=== PATIENT | male | born 1960 | race Hispanic/Latino ===

== ENCOUNTER 2016-09-21 21:51 | Inpatient (IN) | payer MEDICARE, MEDICAID ==
[2016-09-21 22:41] LABS: VENOUS BLOOD GAS BASE EXCESS 0.4 mmol/L (0.0-2.0); VENOUS BLOOD GAS PCO2 31 mmHg (40-60); VENOUS BLOOD PH 7.48 (7.32-7.43)
[2016-09-21 22:44] LABS: BASO # 0.1 K/uL (0.0-0.2); BASO % 0.4 % (0.0-2.0); EOS # 0.1 K/uL (0.0-0.7); EOS % 0.3 % (0.0-4.0); HEMATOCRIT 38.8 % (35.0-51.0); LYMPH % 11.1 % (20.0-40.0); MEAN CELL VOLUME 86.1 fL (80.0-94.0); MEAN CORPUSCULAR HEMOGLOBIN 29.2 pg (27.0-31.0); MEAN CORPUSCULAR HGB CONC 33.9 g/dL (33.0-37.0); MEAN PLATELET VOLUME 9.1 fL (7.2-11.7); MONO # 1.2 K/uL (0.0-0.8); MONO % 6.9 % (0.0-10.0); RED CELL DISTRIBUTION WIDTH 14.4 % (11.5-14.5); WHITE BLOOD COUNT 17.7 K/uL (4.8-10.8)
[2016-09-21 22:51] LABS: CHLORIDE 96 mmol/L (98-107); INR 1.2; POTASSIUM 3.6 mmol/L (3.6-5.2); SODIUM 132 mmol/L (132-148)
[2016-09-21 22:53] LABS: GFR AFRICAN-AMERICAN > 60
[2016-09-21 22:54] LABS: ALB/GLOB RATIO 0.9 (1.0-2.1); ALKALINE PHOSPHATASE 124 U/L (38-126); ALT/SGPT 76 U/L (21-72); AST/SGOT 89 U/L (17-59); BILIRUBIN,TOTAL 0.8 mg/dL (0.2-1.3); BLOOD UREA NITROGEN 24 mg/dL (9-20); CALCIUM 8.2 mg/dl (8.6-10.4); CARBON DIOXIDE 21 mmol/L (22-30); GLUCOSE,RANDOM 117 mg/dL (75-110); TOTAL PROTEIN 7.5 g/dL (6.3-8.3)
--- NOTE | 2016-09-21 23:42 | C.PDOC ---
History Of Present Illness Patient with Hx of Seizures presents to ED with complaints of multiple episodes of seizures, fever and chills since yesterday. Patient also states he woke up this morning unable to move his left side of body. Patient reports he had some movement to his left arm and leg last night before going to sleep. Patient denies n/v/d or any other complaints at this time. Time Seen by Provider: 09/21/16 23:31 Chief Complaint (Nursing): Fever History Per: Patient History/Exam Limitations: no limitations Onset/Duration Of Symptoms: Days Current Symptoms Are (Timing): Still Present Sick Contacts (Context): None Associated Symptoms: Fever, Chills. denies: Nausea, Vomiting, Diarrhea Severity: Mild Pain Scale Rating Of: 2 Recent travel outside of the [place]: No Additional History Per: Patient Past Medical History Reviewed: Historical Data, Nursing Documentation, Vital Signs Vital Signs: Last Vital Signs Temp 99.4 F 09/22/16 00:34 Pulse 116 H 09/22/16 00:47 Resp 18 09/22/16 00:47 BP 96/66 L 09/22/16 00:47 Pulse Ox 97 09/22/16 00:47 - Medical History PMH: HTN, Hypercholesterolemia, Kidney Stones (9MM LEFT KIDNEY), Post Traumatic Stress Disorder, Seizures Surgical History: Appendectomy, Cholecystectomy - [facility] Procedures AMBULATORY CARDIAC MONITORING (04/01/02) DX ULTRASOUND-HEART (04/01/02) MAGNETIC RESONANCE IMAGING OF BRAIN AND BRAIN STEM (04/01/02) TREADMILL STRESS TEST (04/01/02) Family History: States: No Known Family Hx - Social History Hx Alcohol Use: No Hx Substance Use: No - Immunization History Hx Tetanus Toxoid Vaccination: No Hx Influenza Vaccination: No Hx Pneumococcal Vaccination: No Review Of Systems Constitutional: Positive for: Fever, Chills Gastrointestinal: Negative for: Nausea, Vomiting, Diarrhea Skin: Negative for: Rash Neurological: Positive for: Seizures Physical Exam - Physical Exam Appears: Non-toxic, No Acute Distress Skin: Warm Head: Normacephalic Eye(s): bilateral: Normal Inspection Oral Mucosa: Moist Neck: Trachea Midline, Supple Chest: Symmetrical Cardiovascular: Rhythm Regular Respiratory: No Rales, No Rhonchi, No Wheezing Gastrointestinal/Abdominal: Bowel Sounds (Active), Soft, No Tenderness, No Guarding, No Rebound Back: No CVA Tenderness Extremity: No Tenderness Extremity: Left: Other (hemiplegia) Neurological/Psych: Oriented x3 (Awake and alert), Other (Left Hemiplegia) Gait: Unable To Assess ED Course And Treatment - Laboratory Results Result Diagrams: 09/21/16 22:40 09/21/16 22:40 ECG: Interpreted By Me, Viewed By Me O2 Sat by Pulse Oximetry: 93 (RA) Pulse Ox Interpretation: Abnormal - Radiology CXR: Interpreted by Me, Viewed By Me CXR Interpretation: Yes: Other (?? rll infiltrate). No: Fracture, Pnemothorax NIHSS Stroke Scale - Date/Time Evaluation Performed Date Performed: 09/21/16 When Was NIHSS Performed: Baseline - How Severe is the Stoke Level of Consciousness: 0=Alert LOC to Questions: 0=Both comments correct LOC to commands: 0=Obeys both correctly Best Gaze: 0=Normal Visual: 0=No visual loss Facial: 0=Normal Motor Arm - Left: 3=No effort against gravity (falls immediately) Motor Arm - Right: 0=No drift Motor Leg - Left: 3=No effort against gravity (falls immediately) Motor Leg - Right: 0=No drift Limb Ataxia: 0=Absent Sensory: 0=Normal Best Language: 0=No aphasia Dysarthia: 0=Normal articulation Extinction & Inattention (Neglect): 0=Normal, no object Score: 6 Severity Of Stroke: 5-15= Moderate Stroke Disposition Discussed With : Rosa Franco Comment: accepted the pt on his service and took over the care at 2:12 AM Doctor Will See Patient In The: Hospital Counseled Patient/Family Regarding: Studies Performed, Diagnosis - Disposition Disposition: HOSPITALIZED Disposition Time: 00:00 Condition: FAIR - POA Present On Arrival: Poor Glycemic Control - Clinical Impression Clinical Impression: Fever, UTI (urinary tract infection), CVA (cerebral vascular accident) - Scribe Statement The provider has reviewed the documentation as recorded by the Wongibcathie Shea All medical record entries made by the Scribe were at my direction and personally dictated by me. I have reviewed the chart and agree that the record accurately reflects my personal performance of the history, physical exam, medical decision making, and the department course for this patient. I have also personally directed, reviewed, and agree with the discharge instructions and disposition. Decision To Admit - Pt Status Changed To: Hospital Disposition Of: Inpatient - Admit Certification Admit to Inpatient:: After my assessment, the patient will require hospitalization for at least two midnights. This is because of the severity of symptoms shown, intensity of services needed, and/or the medical risk in this patient being treated as an outpatient. - InPatient: Physician Admission Certification:: After my assessment, the patient will require hospitalization for at least two midnights. This is because of the severity of symptoms shown, intensity of services needed, and/or the medical risk in this patient being treated as an outpatient. - . Bed Request Type: Regular Admitting Physician: Rosa Franco Patient Diagnosis: Fever, UTI (urinary tract infection), CVA (cerebral vascular accident)
--- NOTE | 2016-09-22 00:07 | CT ---
EXAM: CT Head Without Intravenous Contrast CLINICAL HISTORY: 56 years old, male; Pain; Headache; Additional info: HX of strokes, l ryann TECHNIQUE: Axial computed tomography images of the head/brain without intravenous contrast. This CT exam was performed using one or more of the following dose reduction techniques: automated exposure control, adjustment of the mA and/or kV according to patient size, and/or use of iterative reconstruction technique. COMPARISON: No relevant prior studies available. FINDINGS: Brain: Mild atrophy. No intracranial hemorrhage. No mass. No definite edema. Ventricles: No hydrocephalus. Bones/joints: No acute fracture. Soft tissues: Small linear radiopaque density posterior midline neck. Clinical correlation is needed. Vasculature: Mild atherosclerotic disease of intracranial arteries. Sinuses: No acute sinusitis. Mastoid air cells: No mastoid effusion. Orbits: Unremarkable as visualized. IMPRESSION: 1. No definite acute intracranial abnormality. Acute infarction may be CT occult within first 24 hours. If a focal deficit persists, consider followup CT or MRI for further evaluation. 2. Incidental/non-acute findings are described above.
[2016-09-22 01:31] LABS: RBC URINE 5 /hpf (0-3); URINE BACTERIA MOD (<OCC); URINE BILIRUBIN NEGATIVE (NEGATIVE); URINE COLOR Amber (YELLOW); URINE GLUCOSE (UA) NORMAL (Normal); URINE KETONE TRACE mg/dL (NEGATIVE); URINE LEUKOCYTE ESTERASE 3+ Leu/uL (Negative); URINE PROTEIN 2+ mg/dL (NEGATIVE); URINE UROBILINOGEN NORMAL mg/dL (0.2-1.0); WBC URINE 57 /hpf (0-5)
[2016-09-22] MEDS ORDERED: Moxifloxacin IV 400mg/250ml NS 400 MG/250 ML BAG IVPB ONE (01:42)
[2016-09-22 01:59] LABS: URINE BLOOD TRACE (NEGATIVE)
[2016-09-22] MEDS ORDERED: PHENOBARBITAL 60 MG PO SCH (07:15)
--- NOTE | 2016-09-22 08:34 | RAD ---
HISTORY: FEVER COMPARISON: None available. TECHNIQUE: Chest, one view. FINDINGS: Examination limited by habitus. LUNGS: No focal consolidation. Please note that chest x-ray has limited sensitivity for the detection of pulmonary masses. PLEURA: No significant pleural effusion identified. No definite pneumothorax . CARDIOVASCULAR: The cardiomediastinal silhouette appears within normal limits of size. OSSEOUS STRUCTURES: No acute osseous abnormality identified. VISUALIZED UPPER ABDOMEN: Unremarkable. OTHER FINDINGS: None. IMPRESSION: No focal consolidation, significant pleural effusion, or definite pneumothorax identified.
[2016-09-22] MEDS ORDERED: Belladonna-Phenobarbital ONE (08:47)
[2016-09-22] MEDS ORDERED: Mupirocin 2% Ointment (NASAL) TP SCH ×2 (10:00)
[2016-09-22] MEDS ORDERED: NYSTATIN TP SCH ×2 (10:00)
[2016-09-22] MEDS ORDERED: TRIAMCINOLONE TP SCH ×2 (10:00)
[2016-09-22] MEDS: Multiple Vitamins Tab PO SCH (10:05)
--- NOTE | 2016-09-22 14:20 | CP.PCM.PN ---
Subjective - Date & Time of Evaluation Date of Evaluation: 09/22/16 Time of Evaluation: 11:00 - Subjective Subjective: Medicine Note- Dr. Franco's service Patient is a 56 year old male with PMHx of multiple CVAs, htn, hx of clots, hx of seizures, that presented to the hospital yesterday evening. He says that on Sunday, he experienced a fever and what he suspected what a seizure following it. He says he doesnt remember if he had the seizure but he recalls feeling like he was about to have one, which then he woke up the next day. He continues to have fevers, measuring up to 105 degrees, as per patient, measured in his axillary region. He was urged to come to the hospital so he did. On , he realized that he was unable to move his left upper and lower extremities. Previously, he had residual weakness from his CVAs and was able to move his left arm and leg with some strength. Allergies: PCN Denies smoking, alcohol, drug hx Objective - Vital Signs/Intake and Output Vital Signs (last 24 hours): Temp Pulse Resp BP Pulse Ox 99.0 F 106 H 18 102/67 99 09/22/16 11:22 09/22/16 14:05 09/22/16 14:05 09/22/16 14:05 09/22/16 14:05 - Medications Medications: Current Medications Calcium Carbonate (Oscal) 500 mg PO BID [facility] Last Admin: 09/22/16 10:19 Dose: 500 mg Famotidine (Pepcid) 20 mg PO DAILY [facility] Last Admin: 09/22/16 10:55 Dose: 20 mg Gabapentin (Neurontin) 300 mg PO BID [facility] Last Admin: 09/22/16 10:20 Dose: 300 mg Ciprofloxacin (Cipro 400mg/200ml Dsw) 400 mg in 200 mls @ 133 mls/hr IVPB Q12H [facility] Levetiracetam (Keppra) 1,000 mg PO BID [facility] Last Admin: 09/22/16 10:07 Dose: 1,000 mg Lisinopril (Zestril) 5 mg PO DAILY [facility] Last Admin: 09/22/16 10:20 Dose: Not Given Multivitamins (Hexavitamin) 1 tab PO DAILY [facility] Last Admin: 08/04/17 10:05 Dose: 1 tab Mupirocin (Bactroban 2% Nasal) 0.25 gm TP BID [facility] Last Admin: 09/22/16 10:20 Dose: 0.25 gm Nystatin/Triamcinolone Acetonide (Mycolog Ii) 1 ea TP BID [facility] Last Admin: 09/22/16 10:50 Dose: 1 ea Phenobarbital (Phenobarbital Tab) 64.8 mg PO Q8 [facility] Rosuvastatin Calcium (Crestor) 20 mg PO HS [facility] Sitagliptin Phosphate (Januvia) 100 mg PO DAILY [facility] Last Admin: 09/22/16 10:07 Dose: 100 mg - Labs Labs: PT 13.4 SECONDS (9.7-12.2) H 09/21/16 22:40 INR 1.2 09/21/16 22:40 APTT 29 SECONDS (21-34) 09/21/16 22:40 - Constitutional Appears: Non-toxic, No Acute Distress, Chronically Ill - Head Exam Head Exam: ATRAUMATIC, NORMAL INSPECTION, NORMOCEPHALIC - Eye Exam Pupil Exam: NORMAL ACCOMODATION, PERRL - ENT Exam ENT Exam: Mucous Membranes Moist - Neck Exam Neck Exam: Normal Inspection - Respiratory Exam Respiratory Exam: Clear to Ausculation Bilateral, Rales, NORMAL BREATHING PATTERN. absent: Prolonged Expiratory Phase, Rhonchi, Wheezes - Cardiovascular Exam Cardiovascular Exam: REGULAR RHYTHM, +S1, +S2 - GI/Abdominal Exam GI & Abdominal Exam: Soft, Normal Bowel Sounds. absent: Tenderness, Diminished Bowel Sounds, Hernia, Hyperactive Bowel Sounds, Hypoactive Bowel Sounds - Neurological Exam Neurological Exam: Alert, Awake, Oriented x3 Neuro motor strength exam: Left Upper Extremity: 0 (no sensation), Right Upper Extremity: 5, Left Lower Extremity: 0 (no sensation), Right Lower Extremity: 5 - Psychiatric Exam Psychiatric exam: Normal Affect, Normal Mood - Skin Skin Exam: Dry, Intact, Normal Color, Warm Assessment and Plan (1) Sepsis Assessment & Plan: HR > 100, WBC > 12 Consult- ID- Dr. Alejandro UA- Nitrate positive, LE +3, WBC 57 mod bacteria f/u urine culture f/u blood culture F/u lactate Started on Cipro 400mg IVPB Q12h Status: Acute (2) UTI (urinary tract infection) Assessment & Plan: UA- Nitrate positive, LE +3, WBC 57 mod bacteria WBC-17.7 f/u urine culture f/u blood culture Started on Cipro 400mg IVPB Q12h Status: Acute (3) Hemiparesis affecting left side as late effect of stroke Assessment & Plan: Consult neuro Head CT- No definite acute infarction (Please see full report) Continue Crestor 20mg PO HS f/u MRI Brain w/o contrast Status: Acute (4) Seizures Assessment & Plan: Consult neuro- Dr. Paradise Nichols Continue home meds: Keppra 1000mg PO BID Phenobarbital 32.4mg PO Q8h Status: Acute (5) Hypertension Assessment & Plan: Lisinopril 5mg PO Daily Status: Acute (6) Diabetes Assessment & Plan: Continue home med: Levemir 15U SC QHS Novolog 15U SC AC RISS Accucheck Status: Acute (7) Hyperlipidemia Assessment & Plan: Crestor 20mg PO HS Status: Acute (8) History of DVT (deep vein thrombosis) Assessment & Plan: Patient reports he was previously on eliquis, but he was stopped on it about one month ago due to complaints of hematuria. Status: Acute (9) Prophylactic measure Assessment & Plan: Heparin 5000U SC Q8h Protonix 40mg PO Daily Status: Acute
[2016-09-22] MEDS ORDERED: Ciprofloxacin 400mg/200ml D5W 400 MG/200 ML BAG IVPB ONE (15:29)
[2016-09-22] MEDS: Ciprofloxacin 400mg/200ml D5W 400 MG/200 ML BAG IVPB SCH (15:37)
[2016-09-22 16:19] LABS: VENOUS BLOOD GAS BASE EXCESS -1.2 mmol/L (0.0-2.0); VENOUS BLOOD GAS PCO2 39 mmHg (40-60); VENOUS BLOOD PH 7.39 (7.32-7.43)
[2016-09-22] MEDS: (Novolog) Insulin Aspart, Recombinant 100 u/ml 10 ml vial SC SCH ×3 (17:32→21:23)
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
[2016-09-22] MEDS ORDERED: Gentamicin 160 MG in Sodium Chloride 0.9% 100 ML IVPB ONE ×2 (18:47→22:00)
--- NOTE | 2016-09-22 19:08 | CARD ---
APPROVED REPORT EKG Measurement Heart [id number] <Conclusion> Sinus tachycardia Otherwise normal ECG
[2016-09-22] MEDS: Insulin Detemir 100 units/ml Vial (Levemir) SC SCH (21:23)
[2016-09-23] MEDS: Ciprofloxacin 400mg/200ml D5W 400 MG/200 ML BAG IVPB SCH ×2 (05:40→15:45)
[2016-09-23 06:31] LABS: BASO % 0.5 % (0.0-2.0); EOS # 0.1 K/uL (0.0-0.7); EOS % 0.9 % (0.0-4.0); HEMATOCRIT 36.4 % (35.0-51.0); LYMPH # 1.7 K/uL (1.0-4.3); LYMPH % 17.5 % (20.0-40.0); MEAN CELL VOLUME 85.9 fL (80.0-94.0); MEAN CORPUSCULAR HEMOGLOBIN 28.9 pg (27.0-31.0); MEAN CORPUSCULAR HGB CONC 33.7 g/dL (33.0-37.0); MEAN PLATELET VOLUME 9.4 fL (7.2-11.7); MONO # 0.9 K/uL (0.0-0.8); MONO % 9.3 % (0.0-10.0); RED CELL DISTRIBUTION WIDTH 14.7 % (11.5-14.5); WHITE BLOOD COUNT 9.5 K/uL (4.8-10.8)
[2016-09-23 06:48] LABS: CHLORIDE 98 mmol/L (98-107); SODIUM 136 mmol/L (132-148)
[2016-09-23 06:49] LABS: POTASSIUM 3.6 mmol/L (3.6-5.2)
[2016-09-23 06:51] LABS: ALB/GLOB RATIO 0.8 (1.0-2.1); AST/SGOT 128 U/L (17-59); BILIRUBIN,TOTAL 0.5 mg/dL (0.2-1.3); CARBON DIOXIDE 25 mmol/L (22-30); GFR AFRICAN-AMERICAN > 60; TOTAL PROTEIN 6.9 g/dL (6.3-8.3)
[2016-09-23 06:52] LABS: ALKALINE PHOSPHATASE 122 U/L (38-126); ALT/SGPT 118 U/L (21-72); BLOOD UREA NITROGEN 22 mg/dL (9-20); CALCIUM 8.4 mg/dl (8.6-10.4); GLUCOSE,RANDOM 130 mg/dL (75-110)
[2016-09-23] MEDS: (Novolog) Insulin Aspart, Recombinant 100 u/ml 10 ml vial SC SCH ×6 (07:41→17:00)
[2016-09-23] MEDS: Multiple Vitamins Tab PO SCH (09:03)
--- NOTE | 2016-09-23 11:52 | MRI ---
PROCEDURE: MRI BRAIN WITHOUT CONTRAST HISTORY: sensation and motor loss on left side, hx of 3 cva COMPARISON: None. TECHNIQUE: Multiplanar, multisequence MR images of the brain were obtained without intravenous contrast enhancement. FINDINGS: HEMORRHAGE: None DWI: No evidence of an acute or early subacute infarction. BRAIN PARENCHYMA: No mass effect or edema. No atrophy or chronic microvascular ischemic changes. VENTRICLES: Unremarkable. No hydrocephalus. CRANIUM: Unremarkable. ORBITS: Grossly unremarkable. PARANASAL SINUSES/MASTOIDS: Clear VASCULAR SYSTEM: Skull base flow voids intact. OTHER FINDINGS: None. IMPRESSION: Unremarkable non contrast enhanced MRI of the brain.
[2016-09-23] MEDS ORDERED: Vancomycin 1 gm/NS 200 ml 1 GM/200 ML BAG IVPB ONE (13:00)
--- NOTE | 2016-09-23 15:28 | CON ---
DATE: 09/23/2016 CHIEF COMPLAINT: Evaluate for CVA. HISTORY OF PRESENT ILLNESS: A 56-year-old female with past medical history of multiple TIAs with residual left-sided weakness, has history of seizures followed with Dr. Nihcols, who is on gabapentin, as well as Keppra 1000 mg p.o. b.i.d. He is also on oxycodone for chronic pain, came for questionable seizure and worsening left-sided weakness. Currently, his MRI of the brain is unremarkable. His blood pressures systolic and diastolic are on the lower side and he has evidence of urinary tract infection for which he is on antibiotics per ID. Currently, he has some mild residual left-sided weakness and prior CVA, but otherwise no acute events. No further seizures. ALLERGIES: ALLERGIC TO PENICILLIN. MEDICATIONS: Reviewed by nurse practitioner, see med reconciliation sheet. FAMILY HISTORY: Noncontributory. SOCIAL HISTORY: Denies any illicit drug use, smoking, or EtOH abuse. REVIEW OF SYSTEMS: A 14-point review of system is negative except as in the HPI. PHYSICAL EXAMINATION: GENERAL: The patient is sitting up in bed, in no acute distress. VITAL SIGNS: Temperature 98.5, pulse rate 104, blood pressure 102/67, respiratory rate 18, and oxygen saturation 99% on room air. HEENT: Head is atraumatic and normocephalic. PERRLA. Extraocular muscles intact. NECK: Supple. No JVD. No adenopathy noted. HEART: S1 and S2, normal rate and rhythm. No murmurs, rubs, or gallops. LUNGS: Clear to auscultation. No adventitious sounds. ABDOMEN: Soft, nontender, nondistended. Bowel sounds present. EXTREMITIES: No clubbing, no cyanosis. Peripheral pulses 2+ felt bilaterally. NEUROLOGIC: The patient is alert and oriented to person and place, month, and year. Speech is fluent without any errors. Cranial nerves II through XII intact. Motor exam: Moves all extremities equally. No pronator drift seen. Has mild residual left-sided giveaway weakness compared to the right, which is old. Sensory exam: Light touch, pinprick, proprioception and vibration are intact. DTRs are 2+ throughout. LABORATORY DATA: MRI of the brain is unremarkable. Sodium is 136, potassium 3.2, chloride 98, carbon dioxide 25, BUN 22, creatinine 0.7, and random glucose 130. ASSESSMENT AND PLAN: This is a 56-year-old man with history of cerebrovascular accident with residual left-sided weakness, history of seizures on Keppra 1000 mg p.o. b.i.d. who presented that he had fever and suspected seizure and he does not remember, if he had a seizure or not and felt like that he had one when he workup next day, generalized weakness, and fever. Found to have urinary tract infection. His MRI of the brain is unremarkable for any acute intracranial abnormalities. He has systolic low blood pressure. At this time, he was consulted worsening left-sided weakness probably from cerebrovascular accident. IMPRESSION: Urinary tract infection, possibly causing the questionable breakthrough seizures superimposed underlying residual left-sided weakness from prior cerebrovascular accident. His MRI of the brain unremarkable and acute stroke. At this time, we recommend: 1. Continue with his Keppra 1000 mg p.o. b.i.d. for seizure prevention. 2. Monitor his sugars and keep his blood sugars around 141-180. 3. Continue with phenobarbital 32.4 mg p.o. q.8 hours for his underlying seizures as well. 4. Keep his systolic blood pressures between 120-130. 5. Continue to manage his urinary tract infection with current antibiotics as per ID. 6. Gabapentin 300 mg p.o. b.i.d. for neuropathic pain relief and avoid opioids to lower the seizure threshold. Continue current present medical management and he is cleared from my standpoint and need to follow up with his neurologist Dr. Nichols. Barrie Velasquez MD
[2016-09-23] MEDS: Insulin Detemir 100 units/ml Vial (Levemir) SC SCH (21:35)
[2016-09-24] MEDS: Oxycodone/Acetaminophen 5/325 mg Tab PO PRN ×3 (00:40→21:56)
[2016-09-24] MEDS: Ciprofloxacin 400mg/200ml D5W 400 MG/200 ML BAG IVPB SCH ×2 (03:22→14:00)
[2016-09-24 07:39] LABS: BASO # 0.1 K/uL (0.0-0.2); BASO % 0.7 % (0.0-2.0); EOS # 0.2 K/uL (0.0-0.7); EOS % 1.9 % (0.0-4.0); HEMATOCRIT 36.4 % (35.0-51.0); LYMPH # 1.5 K/uL (1.0-4.3); LYMPH % 17.3 % (20.0-40.0); MEAN CELL VOLUME 85.9 fL (80.0-94.0); MEAN CORPUSCULAR HEMOGLOBIN 29.1 pg (27.0-31.0); MEAN CORPUSCULAR HGB CONC 33.9 g/dL (33.0-37.0); MEAN PLATELET VOLUME 9.6 fL (7.2-11.7); MONO # 0.8 K/uL (0.0-0.8); MONO % 8.8 % (0.0-10.0); RED CELL DISTRIBUTION WIDTH 14.3 % (11.5-14.5); WHITE BLOOD COUNT 8.9 K/uL (4.8-10.8)
[2016-09-24 07:44] LABS: CHLORIDE 98 mmol/L (98-107)
[2016-09-24 07:45] LABS: POTASSIUM 3.8 mmol/L (3.6-5.2); SODIUM 137 mmol/L (132-148)
[2016-09-24 07:47] LABS: BILIRUBIN,TOTAL 0.5 mg/dL (0.2-1.3); CARBON DIOXIDE 27 mmol/L (22-30); CHOLESTEROL 149 mg/dL (0-199); GFR AFRICAN-AMERICAN > 60
[2016-09-24 07:48] LABS: ALB/GLOB RATIO 0.8 (1.0-2.1); ALKALINE PHOSPHATASE 138 U/L (38-126); ALT/SGPT 123 U/L (21-72); AST/SGOT 103 U/L (17-59); BLOOD UREA NITROGEN 17 mg/dL (9-20); CALCIUM 8.7 mg/dl (8.6-10.4); GLUCOSE,RANDOM 111 mg/dL (75-110); TOTAL PROTEIN 7.1 g/dL (6.3-8.3)
[2016-09-24] MEDS: (Novolog) Insulin Aspart, Recombinant 100 u/ml 10 ml vial SC SCH ×7 (08:15→21:31)
[2016-09-24] MEDS: Multiple Vitamins Tab PO SCH (09:19)
--- NOTE | 2016-09-24 14:59 | CP.PCM.PN ---
Subjective - Date & Time of Evaluation Date of Evaluation: 09/24/16 Time of Evaluation: 07:00 - Subjective Subjective: afebrile on iv antibiotics grew esbl + ecoli in urine has stones by hx with recurrent uti on iv cipro allergic pcn prognosis guarded cont iv rx Objective - Vital Signs/Intake and Output Vital Signs (last 24 hours): Temp Pulse Resp BP Pulse Ox 97.3 F L 106 H 20 115/78 99 09/24/16 08:22 09/24/16 12:16 09/24/16 08:22 09/24/16 08:22 09/24/16 12:16 Intake and Output: 09/24/16 09/24/16 06:59 18:59 Intake Total 600 600 Balance 600 600 - Medications Medications: Current Medications Famotidine (Pepcid) 20 mg PO DAILY [facility] Last Admin: 09/24/16 09:20 Dose: 20 mg Gabapentin (Neurontin) 300 mg PO BID [facility] Last Admin: 09/24/16 09:19 Dose: 300 mg Heparin Sodium (Porcine) (Heparin) 5,000 units SC Q8 [facility] Last Admin: 09/24/16 13:03 Dose: 5,000 units Ciprofloxacin (Cipro 400mg/200ml Dsw) 400 mg in 200 mls @ 133 mls/hr IVPB Q12H [facility] Last Admin: 09/24/16 14:00 Dose: 133 mls/hr Insulin Aspart (Novolog) 15 unit SC AC [facility] Last Admin: 09/24/16 12:18 Dose: 15 unit Insulin Aspart (Novolog) 0 unit SC ACHS [facility] PRN Reason: Protocol Last Admin: 09/24/16 12:19 Dose: 2 unit Insulin Detemir (Levemir) 15 unit SC HS [facility] Last Admin: 09/23/16 21:35 Dose: 15 unit Levetiracetam (Keppra) 1,000 mg PO BID [facility] Last Admin: 09/24/16 09:19 Dose: 1,000 mg Lisinopril (Zestril) 5 mg PO DAILY [facility] Last Admin: 09/24/16 09:21 Dose: Not Given Multivitamins (Hexavitamin) 1 tab PO DAILY [facility] Last Admin: 09/24/16 09:19 Dose: 1 tab Oxycodone/Acetaminophen (Percocet 5/325 Mg Tab) 1 tab PO Q6H PRN PRN Reason: Pain, severe (8-10) Stop: 09/25/16 14:32 Last Admin: 09/24/16 12:20 Dose: 1 tab Phenobarbital (Phenobarbital Tab) 32.4 mg PO Q8 [facility] Last Admin: 09/24/16 13:03 Dose: 32.4 mg Pneumococcal Polyvalent Vaccine (Pneumovax 23 Vaccine) 0.5 ml IM .ONCE ONE Stop: 09/25/16 10:01 Rosuvastatin Calcium (Crestor) 20 mg PO HS [facility] Last Admin: 09/23/16 21:35 Dose: 20 mg Sitagliptin Phosphate (Januvia) 100 mg PO DAILY [facility] Last Admin: 09/24/16 09:20 Dose: 100 mg - Labs Labs: 09/24/16 07:17 09/24/16 07:17 PT 13.4 SECONDS (9.7-12.2) H 09/21/16 22:40 INR 1.2 09/21/16 22:40 APTT 29 SECONDS (21-34) 09/21/16 22:40 - Constitutional Appears: Non-toxic, No Acute Distress, Chronically Ill - Head Exam Head Exam: NORMOCEPHALIC - Eye Exam Eye Exam: PERRL. absent: Scleral icterus - ENT Exam ENT Exam: Mucous Membranes Dry - Neck Exam Neck Exam: absent: Thyromegaly - Respiratory Exam Respiratory Exam: Decreased Breath Sounds, Clear to Ausculation Bilateral - Cardiovascular Exam Cardiovascular Exam: REGULAR RHYTHM - GI/Abdominal Exam GI & Abdominal Exam: Distended, Soft - Rectal Exam Rectal Exam: Deferred - Exam Exam: NORMAL INSPECTION - Extremities Exam Extremities Exam: absent: Pedal Edema - Back Exam Back Exam: absent: CVA tenderness (L), CVA tenderness (R) - Neurological Exam Neurological Exam: Alert, Awake, Oriented x3 Assessment and Plan (1) CVA, old, hemiparesis Status: Acute (2) Diabetes Status: Acute (3) Fever Status: Acute (4) Hemiparesis affecting left side as late effect of stroke Status: Acute (5) History of DVT (deep vein thrombosis) Status: Acute (6) Hyperlipidemia Status: Acute (7) Hypertension Status: Acute (8) Sepsis Status: Acute (9) UTI (urinary tract infection) Status: Acute
[2016-09-24 16:48] LABS: RBC URINE < 1 /hpf (0-3); URINE BILIRUBIN NEGATIVE (NEGATIVE); URINE BLOOD 1+ (NEGATIVE); URINE COLOR Straw (YELLOW); URINE GLUCOSE (UA) NORMAL (Normal); URINE KETONE NEGATIVE (NEGATIVE); URINE LEUKOCYTE ESTERASE TRACE Leu/uL (Negative); URINE PROTEIN NEGATIVE (NEGATIVE); URINE UROBILINOGEN NORMAL mg/dL (0.2-1.0); WBC URINE 6 /hpf (0-5)
--- NOTE | 2016-09-24 21:44 | PN ---
DATE: 09/24/2016 The patient is given IV antibiotics, supportive care. Rosa Franco MD
[2016-09-24] MEDS: Insulin Detemir 100 units/ml Vial (Levemir) SC SCH (21:52)
[2016-09-25] MEDS: Ciprofloxacin 400mg/200ml D5W 400 MG/200 ML BAG IVPB SCH ×2 (04:09→14:51)
--- NOTE | 2016-09-25 05:15 | HP ---
HISTORY OF PRESENT ILLNESS: A 56-year-old male admitted to the hospital with weakness, fatigue, tiredness and shortness of breath. The patient came to the hospital, advised admission. The patient was started on IV antibiotics. PHYSICAL EXAMINATION GENERAL: The patient is awake, alert and oriented. VITAL SIGNS: Temperature 98, pulse 90. HEENT: Within normal limits. NECK: Supple. CHEST: Symmetrical. HEART: Regular. ABDOMEN: Soft. EXTREMITIES: No edema. IMPRESSION: The patient suffers from urinary tract infection and sepsis. supportive care. . Rosa Franco MD
[2016-09-25 07:42] LABS: BASO # 0.1 K/uL (0.0-0.2); BASO % 0.8 % (0.0-2.0); EOS # 0.2 K/uL (0.0-0.7); EOS % 2.2 % (0.0-4.0); HEMATOCRIT 38.6 % (35.0-51.0); LYMPH # 1.4 K/uL (1.0-4.3); LYMPH % 15.5 % (20.0-40.0); MEAN CELL VOLUME 86.5 fL (80.0-94.0); MEAN CORPUSCULAR HGB CONC 33.5 g/dL (33.0-37.0); MEAN PLATELET VOLUME 10.2 fL (7.2-11.7); MONO # 0.8 K/uL (0.0-0.8); MONO % 8.3 % (0.0-10.0); NRBC % 0.1 % (0.0-2.0); RED CELL DISTRIBUTION WIDTH 14.2 % (11.5-14.5); WHITE BLOOD COUNT 9.4 K/uL (4.8-10.8)
[2016-09-25] MEDS: (Novolog) Insulin Aspart, Recombinant 100 u/ml 10 ml vial SC SCH ×7 (08:00→21:33)
[2016-09-25 08:04] LABS: CHLORIDE 98 mmol/L (98-107); SODIUM 135 mmol/L (132-148)
[2016-09-25 08:05] LABS: POTASSIUM 4.5 mmol/L (3.6-5.2)
[2016-09-25 08:07] LABS: ALKALINE PHOSPHATASE 140 U/L (38-126); ALT/SGPT 102 U/L (21-72); AST/SGOT 66 U/L (17-59); BILIRUBIN,TOTAL 0.4 mg/dL (0.2-1.3); BLOOD UREA NITROGEN 20 mg/dL (9-20); CALCIUM 8.9 mg/dl (8.6-10.4); CARBON DIOXIDE 25 mmol/L (22-30); GFR AFRICAN-AMERICAN > 60; GLUCOSE,RANDOM 138 mg/dL (75-110); TOTAL PROTEIN 7.3 g/dL (6.3-8.3)
[2016-09-25 08:15] LABS: ALB/GLOB RATIO 0.9 (1.0-2.1)
[2016-09-25] MEDS: Multiple Vitamins Tab PO SCH (09:51)
[2016-09-25] MEDS ORDERED: Pneumococcal 23-Valent Vaccine IM ONE (10:00)
--- NOTE | 2016-09-25 14:40 | CP.PCM.PN ---
Subjective - Date & Time of Evaluation Date of Evaluation: 09/25/16 Time of Evaluation: 07:45 - Subjective Subjective: Medicine Note- Dr. Franco's service Patient seen and examined at bedside this morning. He reports that he does not have abdominal pain, back pain or urinary complaints today. He states that he does follow up with urology outpatient for a large renal stone.He denied fever/ chills, headache, changes in vision, CP, urinary complaints, weakness, numbness in the extremities. Objective - Vital Signs/Intake and Output Vital Signs (last 24 hours): Temp Pulse Resp BP Pulse Ox 98 F 104 H 18 99/65 L 98 09/25/16 07:20 09/25/16 07:20 09/25/16 07:20 09/25/16 07:20 09/25/16 07:20 Intake and Output: 09/25/16 09/25/16 06:59 18:59 Output Total 500 Balance -500 - Medications Medications: Current Medications Famotidine (Pepcid) 20 mg PO DAILY [facility] Last Admin: 09/25/16 09:51 Dose: 20 mg Gabapentin (Neurontin) 300 mg PO BID [facility] Last Admin: 09/25/16 09:51 Dose: 300 mg Heparin Sodium (Porcine) (Heparin) 5,000 units SC Q8 [facility] Last Admin: 09/25/16 13:10 Dose: 5,000 units Ciprofloxacin (Cipro 400mg/200ml Dsw) 400 mg in 200 mls @ 133 mls/hr IVPB Q12H [facility] Last Admin: 09/25/16 04:09 Dose: 133 mls/hr Insulin Aspart (Novolog) 15 unit SC AC [facility] Last Admin: 09/25/16 12:15 Dose: 15 unit Insulin Aspart (Novolog) 0 unit SC ACHS [facility] PRN Reason: Protocol Last Admin: 09/25/16 12:20 Dose: Not Given Insulin Detemir (Levemir) 15 unit SC HS [facility] Last Admin: 09/24/16 21:52 Dose: 15 unit Levetiracetam (Keppra) 1,000 mg PO BID [facility] Last Admin: 09/25/16 09:51 Dose: 1,000 mg Lisinopril (Zestril) 5 mg PO DAILY [facility] Last Admin: 09/25/16 09:51 Dose: Not Given Multivitamins (Hexavitamin) 1 tab PO DAILY [facility] Last Admin: 09/25/16 09:51 Dose: 1 tab Phenobarbital (Phenobarbital Tab) 32.4 mg PO Q8 [facility] Last Admin: 09/25/16 13:10 Dose: 32.4 mg Rosuvastatin Calcium (Crestor) 20 mg PO HS [facility] Last Admin: 09/24/16 21:52 Dose: 20 mg Sitagliptin Phosphate (Januvia) 100 mg PO DAILY [facility] Last Admin: 09/25/16 09:51 Dose: 100 mg - Labs Labs: 09/25/16 07:20 09/25/16 07:20 PT 13.4 SECONDS (9.7-12.2) H 09/21/16 22:40 INR 1.2 09/21/16 22:40 APTT 29 SECONDS (21-34) 09/21/16 22:40 - Constitutional Appears: Non-toxic, No Acute Distress, Chronically Ill - Head Exam Head Exam: ATRAUMATIC, NORMAL INSPECTION - Eye Exam Eye Exam: Normal appearance, PERRL Pupil Exam: NORMAL ACCOMODATION - ENT Exam ENT Exam: Mucous Membranes Moist - Respiratory Exam Respiratory Exam: Decreased Breath Sounds, Wheezes. absent: Accessory Muscle Use, Respiratory Distress, NORMAL BREATHING PATTERN Additional comments: on NC - Cardiovascular Exam Cardiovascular Exam: REGULAR RHYTHM, +S1, +S2 - GI/Abdominal Exam GI & Abdominal Exam: Soft, Normal Bowel Sounds. absent: Distended, Firm, Guarding, Tenderness Additional comments: obese - Extremities Exam Extremities Exam: Normal Inspection, Pedal Edema - Neurological Exam Neurological Exam: Alert, Awake, Oriented x3 - Psychiatric Exam Psychiatric exam: Normal Affect, Normal Mood - Skin Skin Exam: Dry, Intact, Normal Color, Warm Assessment and Plan - Assessment and Plan (Free Text) Assessment: Assessment and Plan Sepsis Assessment & Plan: HR > 100, WBC > 12 Consult- ID- Dr. Alejandro UA- Nitrate positive, LE +3, WBC 57 mod bacteria f/u urine culture - gram negative peter prelim f/u blood culture - Klebsiella Pneumoniae Started on Cipro 400mg IVPB Q12h (b/c sensitive to Cipro) Status: Acute UTI (urinary tract infection) Assessment & Plan: UA- Nitrate positive, LE +3, WBC 57 mod bacteria WBC- 9.4 today (17.7 on admission) f/u urine culture - gram negative peter prelim f/u blood culture - Klebsiella Pneumoniae Started on Cipro 400mg IVPB Q12h (b/c sensitive to Cipro) Status: Acute Hemiparesis affecting left side as late effect of stroke Assessment & Plan: Consult neuro Head CT- No definite acute infarction (Please see full report) Continue Crestor 20mg PO HS MRI Brain w/o contrast -neagative Status: Acute Hx of Renal Calculi Assessment & Plan: Consult urology, Dr. Dudley - help appreciated PSA 0.693 Status: Acute Seizures Assessment & Plan: Consult neuro- Dr. Alexandra Velasquez consulted help appreciated Continue home meds: Keppra 1000mg PO BID Phenobarbital 32.4mg PO Q8h Gabapentin 300 mg PO BID for neuropathic pain avoid opioids as they can lower seizure threshold clear per neuro can follow up with his neurologist Dr. Nichols outpatient Status: Acute Seizures Assessment & Plan: Consult neuro- Dr. Alexandra Velasquez consulted help appreciated Continue home meds: Keppra 1000mg PO BID Phenobarbital 32.4mg PO Q8h Gabapentin 300 mg PO BID for neuropathic pain avoid opioids as they can lower seizure threshold clear per neuro can follow up with his neurologist Dr. Nichols outpatient Status: Acute Hypertension Assessment & Plan: Lisinopril 5mg PO Daily Status: Acute Diabetes Assessment & Plan: Continue home med: Januvia 100mg PO daily Levemir 15U SC QHS Novolog 15U SC AC RISS Accucheck Status: Acute Hyperlipidemia Assessment & Plan: Crestor 20mg PO HS Status: Acute History of DVT (deep vein thrombosis) Assessment & Plan: Patient reports he was previously on eliquis, but he was stopped on it about one month ago due to complaints of hematuria. Status: Acute Prophylactic measure Assessment & Plan: Heparin 5000U SC Q8h Protonix 40mg PO Daily MV daily CC heart healthy diet Status: Acute
[2016-09-25] MEDS: Insulin Detemir 100 units/ml Vial (Levemir) SC SCH (21:33)
[2016-09-25] MEDS ORDERED: Oxycodone/Acetaminophen 5/325 mg Tab PO STA (21:46)
[2016-09-26] MEDS: Ciprofloxacin 400mg/200ml D5W 400 MG/200 ML BAG IVPB SCH ×2 (03:59→14:38)
[2016-09-26] MEDS: (Novolog) Insulin Aspart, Recombinant 100 u/ml 10 ml vial SC SCH ×4 (07:07→12:17)
[2016-09-26 07:35] LABS: BASO # 0.1 K/uL (0.0-0.2); BASO % 0.6 % (0.0-2.0); EOS # 0.3 K/uL (0.0-0.7); EOS % 2.7 % (0.0-4.0); HEMATOCRIT 38.9 % (35.0-51.0); LYMPH # 1.7 K/uL (1.0-4.3); LYMPH % 16.7 % (20.0-40.0); MEAN CELL VOLUME 86.4 fL (80.0-94.0); MEAN CORPUSCULAR HEMOGLOBIN 28.7 pg (27.0-31.0); MEAN CORPUSCULAR HGB CONC 33.2 g/dL (33.0-37.0); MEAN PLATELET VOLUME 9.8 fL (7.2-11.7); MONO # 0.9 K/uL (0.0-0.8); MONO % 9.1 % (0.0-10.0); RED CELL DISTRIBUTION WIDTH 14.4 % (11.5-14.5); WHITE BLOOD COUNT 10.2 K/uL (4.8-10.8)
[2016-09-26 08:23] LABS: CHLORIDE 99 mmol/L (98-107)
[2016-09-26 08:24] LABS: POTASSIUM 4.4 mmol/L (3.6-5.2); SODIUM 135 mmol/L (132-148)
[2016-09-26 08:26] LABS: ALKALINE PHOSPHATASE 150 U/L (38-126); ALT/SGPT 89 U/L (21-72); AST/SGOT 55 U/L (17-59); BILIRUBIN,TOTAL 0.4 mg/dL (0.2-1.3); BLOOD UREA NITROGEN 19 mg/dL (9-20); CARBON DIOXIDE 26 mmol/L (22-30); GFR AFRICAN-AMERICAN > 60; GLUCOSE,RANDOM 139 mg/dL (75-110); TOTAL PROTEIN 7.4 g/dL (6.3-8.3)
[2016-09-26 08:27] LABS: ALB/GLOB RATIO 0.9 (1.0-2.1); CALCIUM 8.8 mg/dl (8.6-10.4); MAGNESIUM 1.9 mg/dL (1.6-2.3); PHOSPHOROUS 3.6 mg/dL (2.5-4.5)
[2016-09-26 08:46] VITALS: BP 120/72; PULSE 103; RESP 19; TEMP 98.1; O2SAT 98
[2016-09-26] MEDS: Multiple Vitamins Tab PO SCH (09:09)
--- NOTE | 2016-09-26 11:15 | CP.PCM.PN ---
Subjective - Date & Time of Evaluation Date of Evaluation: 09/26/16 Time of Evaluation: 07:00 - Subjective Subjective: klebs in blood and urine sens to cipro cont rx min 14-21 days gu eval recommended Objective - Vital Signs/Intake and Output Vital Signs (last 24 hours): Temp Pulse Resp BP Pulse Ox 98.1 F 103 H 19 120/72 98 09/26/16 07:20 09/26/16 07:20 09/26/16 07:20 09/26/16 07:20 09/26/16 07:20 Intake and Output: 09/26/16 09/26/16 06:59 18:59 Output Total 350 Balance -350 - Medications Medications: Current Medications Famotidine (Pepcid) 20 mg PO DAILY [facility] Last Admin: 09/26/16 09:09 Dose: 20 mg Gabapentin (Neurontin) 300 mg PO BID [facility] Last Admin: 09/26/16 09:09 Dose: 300 mg Heparin Sodium (Porcine) (Heparin) 5,000 units SC Q8 [facility] Last Admin: 09/26/16 06:19 Dose: 5,000 units Ciprofloxacin (Cipro 400mg/200ml Dsw) 400 mg in 200 mls @ 133 mls/hr IVPB Q12H [facility] Last Admin: 09/26/16 03:59 Dose: 133 mls/hr Insulin Aspart (Novolog) 15 unit SC AC [facility] Last Admin: 09/26/16 07:48 Dose: 15 unit Insulin Aspart (Novolog) 0 unit SC ACHS [facility] PRN Reason: Protocol Last Admin: 09/26/16 07:07 Dose: Not Given Insulin Detemir (Levemir) 15 unit SC HS [facility] Last Admin: 09/25/16 21:33 Dose: 15 unit Levetiracetam (Keppra) 1,000 mg PO BID [facility] Last Admin: 09/26/16 09:09 Dose: 1,000 mg Lisinopril (Zestril) 5 mg PO DAILY [facility] Last Admin: 09/26/16 09:10 Dose: Not Given Multivitamins (Hexavitamin) 1 tab PO DAILY [facility] Last Admin: 09/26/16 09:09 Dose: 1 tab Phenobarbital (Phenobarbital Tab) 32.4 mg PO Q8 [facility] Last Admin: 09/26/16 06:19 Dose: 32.4 mg Rosuvastatin Calcium (Crestor) 20 mg PO HS [facility] Last Admin: 09/25/16 21:31 Dose: 20 mg Sitagliptin Phosphate (Januvia) 100 mg PO DAILY [facility] Last Admin: 09/26/16 09:09 Dose: 100 mg - Labs Labs: 09/26/16 07:10 09/26/16 07:10 PT 13.4 SECONDS (9.7-12.2) H 09/21/16 22:40 INR 1.2 09/21/16 22:40 APTT 29 SECONDS (21-34) 09/21/16 22:40 - Constitutional Appears: Non-toxic - Head Exam Head Exam: NORMOCEPHALIC - Eye Exam Eye Exam: PERRL - ENT Exam ENT Exam: Mucous Membranes Dry - Neck Exam Neck Exam: absent: Lymphadenopathy - Respiratory Exam Respiratory Exam: Clear to Ausculation Bilateral - Cardiovascular Exam Cardiovascular Exam: REGULAR RHYTHM - GI/Abdominal Exam GI & Abdominal Exam: Distended, Soft - Rectal Exam Rectal Exam: Deferred Assessment and Plan (1) CVA, old, hemiparesis Status: Acute (2) Diabetes Status: Acute (3) Fever Status: Acute (4) Hemiparesis affecting left side as late effect of stroke Status: Acute (5) History of DVT (deep vein thrombosis) Status: Acute (6) Hyperlipidemia Status: Acute (7) Hypertension Status: Acute (8) Sepsis Status: Acute (9) UTI (urinary tract infection) Status: Acute
--- NOTE | 2016-09-26 12:12 | CP.PCM.PN ---
Subjective - Date & Time of Evaluation Date of Evaluation: 09/26/16 Time of Evaluation: 09:10 - Subjective Subjective: PGY-2 Resident Progress Note for Dr. Franco Patient seen and examined at bedside. No acute events overnight. Patient has no current complaints. Patient expresses strong interest in going home. Patient denies having headache, fever, chills, shortness of breath, chest pain, nausea, vomiting, urinary symptoms or diarrhea. Objective - Vital Signs/Intake and Output Vital Signs (last 24 hours): Temp Pulse Resp BP Pulse Ox 98.1 F 103 H 19 120/72 98 09/26/16 07:20 09/26/16 07:20 09/26/16 07:20 09/26/16 07:20 09/26/16 07:20 Intake and Output: 09/26/16 09/26/16 06:59 18:59 Output Total 350 Balance -350 - Medications Medications: Current Medications Famotidine (Pepcid) 20 mg PO DAILY [facility] Last Admin: 09/26/16 09:09 Dose: 20 mg Gabapentin (Neurontin) 300 mg PO BID [facility] Last Admin: 09/26/16 09:09 Dose: 300 mg Heparin Sodium (Porcine) (Heparin) 5,000 units SC Q8 [facility] Last Admin: 09/26/16 06:19 Dose: 5,000 units Ciprofloxacin (Cipro 400mg/200ml Dsw) 400 mg in 200 mls @ 133 mls/hr IVPB Q12H [facility] Last Admin: 09/26/16 03:59 Dose: 133 mls/hr Insulin Aspart (Novolog) 15 unit SC AC [facility] Last Admin: 09/26/16 07:48 Dose: 15 unit Insulin Aspart (Novolog) 0 unit SC ACHS [facility] PRN Reason: Protocol Last Admin: 09/26/16 07:07 Dose: Not Given Insulin Detemir (Levemir) 15 unit SC HS [facility] Last Admin: 09/25/16 21:33 Dose: 15 unit Levetiracetam (Keppra) 1,000 mg PO BID [facility] Last Admin: 09/26/16 09:09 Dose: 1,000 mg Lisinopril (Zestril) 5 mg PO DAILY [facility] Last Admin: 09/26/16 09:10 Dose: Not Given Multivitamins (Hexavitamin) 1 tab PO DAILY [facility] Last Admin: 09/26/16 09:09 Dose: 1 tab Phenobarbital (Phenobarbital Tab) 32.4 mg PO Q8 [facility] Last Admin: 09/26/16 06:19 Dose: 32.4 mg Rosuvastatin Calcium (Crestor) 20 mg PO HS [facility] Last Admin: 09/25/16 21:31 Dose: 20 mg Sitagliptin Phosphate (Januvia) 100 mg PO DAILY [facility] Last Admin: 09/26/16 09:09 Dose: 100 mg - Labs Labs: 09/26/16 07:10 09/26/16 07:10 PT 13.4 SECONDS (9.7-12.2) H 09/21/16 22:40 INR 1.2 09/21/16 22:40 APTT 29 SECONDS (21-34) 09/21/16 22:40 - Constitutional Appears: Non-toxic, No Acute Distress - Head Exam Head Exam: ATRAUMATIC, NORMAL INSPECTION - Eye Exam Eye Exam: EOMI, Normal appearance - ENT Exam ENT Exam: Mucous Membranes Moist - Neck Exam Neck Exam: Normal Inspection - Respiratory Exam Respiratory Exam: Clear to Ausculation Bilateral, NORMAL BREATHING PATTERN. absent: Respiratory Distress - Cardiovascular Exam Cardiovascular Exam: REGULAR RHYTHM, +S1, +S2. absent: Murmur - GI/Abdominal Exam GI & Abdominal Exam: Soft, Normal Bowel Sounds. absent: Tenderness - Extremities Exam Extremities Exam: Full ROM, Normal Capillary Refill, Normal Inspection. absent : Joint Swelling, Pedal Edema - Neurological Exam Neurological Exam: Alert, Awake, Oriented x3 - Psychiatric Exam Psychiatric exam: Normal Affect, Normal Mood - Skin Skin Exam: Dry, Intact, Normal Color, Warm Assessment and Plan - Assessment and Plan (Free Text) Assessment: Sepsis Improved Consult- ID- Dr. Alejandro UA- Nitrate positive, LE +3, WBC 57 mod bacteria f/u urine culture - gram negative peter prelim f/u blood culture - Klebsiella Pneumoniae Started on Cipro 400mg IVPB Q12h (b/c sensitive to Cipro) Will continue PO cipro as outpatient for 14 days UTI (urinary tract infection) UA- Nitrate positive, LE +3, WBC 57 mod bacteria WBC- 9.4 today (17.7 on admission) f/u urine culture - gram negative peter prelim f/u blood culture - Klebsiella Pneumoniae Started on Cipro 400mg IVPB Q12h (b/c sensitive to Cipro) Will continue PO cipro as outpatient for 14 days Hemiparesis affecting left side as late effect of stroke Consult neuro Head CT- No definite acute infarction (Please see full report) Continue Crestor 20mg PO HS MRI Brain w/o contrast -neagative Hx of Renal Calculi Consult urology, Dr. Dudley - help appreciated PSA 0.693 ABdominal US showed nonobstructing left mid to lower pole calculus Seizures Consult neuro- Dr. Alexandra Velasquez consulted help appreciated Continue home meds: Keppra 1000mg PO BID Phenobarbital 32.4mg PO Q8h Gabapentin 300 mg PO BID for neuropathic pain avoid opioids as they can lower seizure threshold clear per neuro can follow up with his neurologist Dr. Nichols outpatient Seizures Consult neuro- Dr. Alexandra Velasquez consulted help appreciated Continue home meds: Keppra 1000mg PO BID Phenobarbital 32.4mg PO Q8h Gabapentin 300 mg PO BID for neuropathic pain avoid opioids as they can lower seizure threshold clear per neuro can follow up with his neurologist Dr. Nichols outpatient Hypertension Lisinopril 5mg PO Daily Diabetes Continue home med: Januvia 100mg PO daily Levemir 15U SC QHS Novolog 15U SC AC RISS Accucheck Hyperlipidemia Crestor 20mg PO HS History of DVT (deep vein thrombosis) Patient reports he was previously on eliquis, but he was stopped on it about one month ago due to complaints of hematuria. Prophylactic measure Heparin 5000U SC Q8h Protonix 40mg PO Daily MV daily CC heart healthy diet Disposition: Home with PO cipro for 14 days per ID. Will follow up with Urology further workup Case discussed with Dr. Franco. All management per Dr. Franco.
--- NOTE | 2016-09-26 16:22 | US ---
HISTORY: urosepsis COMPARISON: None available. TECHNIQUE: Sonographic evaluation of the abdomen. FINDINGS: LIVER: Measures 15.0 cm in sagittal dimension. Echogenic liver may be seen in setting of hepatic parenchymal disease or fatty infiltration. No focal hepatic mass identified. The main portal vein appears patent with normal directional flow. No intrahepatic bile duct dilatation. GALLBLADDER: Cholecystectomy. COMMON BILE DUCT: Measures 3 mm. PANCREAS: Not well visualized. RIGHT KIDNEY: Measures 11.3 x 4.6 x 4.2 cm. No obstructing calculus or hydronephrosis identified. LEFT KIDNEY: Measures 11.9 x 5.1 x 4.5 cm. No obstructing calculus or hydronephrosis identified. Nonobstructing mid to lower pole calculus measures approximately 1.7 x 0.5 x 1.3 cm. SPLEEN: Measures approximately 10.2 cm. AORTA: Not visualized. IVC: Limited visualization appears grossly unremarkable. OTHER FINDINGS: None. IMPRESSION: Limited study. Echogenic liver may be seen in setting of hepatic parenchymal disease or fatty infiltration. Nonobstructing left mid to lower pole calculus measuring approximately 1.7 x 0.5 x 1.3 cm. Cholecystectomy.
--- NOTE | 2016-09-29 09:47 | DS ---
The patient admitted to the hospital, and complained of fever, weakness and dysuria. The patient was found to have severe UTI, treated with antibiotics. Urine culture . The patient was discharged on Cipro UTIs. Rosa Franco MD
== END 2016-09-26 16:17 | disposition home health service (06) | DRG 872 ==
LOC: C.ER 21:51 → SUPCPDRO 21:51 → C.9E 09-22 02:11 → C.6T 09-22 15:35
PROVIDERS: ADMIT Internal Medicine Pulmonary Disease; ATTEND Internal Medicine Pulmonary Disease
DX: A41.1 Sepsis due to other specified staphylococcus (principal); I69.354 Hemiplegia and hemiparesis following cerebral infarction affecting left non-dominant side; R56.9 Unspecified convulsions; N39.0 Urinary tract infection, site not specified; I10 Essential (primary) hypertension; E10.9 Type 1 diabetes mellitus without complications; E78.5 Hyperlipidemia, unspecified; E78.00 Pure hypercholesterolemia, unspecified; K21.9 Gastro-esophageal reflux disease without esophagitis; F43.10 Post-traumatic stress disorder, unspecified; Z79.4 Long term (current) use of insulin; Z79.899 Other long term (current) drug therapy; Z86.718 Personal history of other venous thrombosis and embolism; Z87.440 Personal history of urinary (tract) infections; Z87.442 Personal history of urinary calculi; B96.1 Klebsiella pneumoniae [K. pneumoniae] as the cause of diseases classified elsewhere